=== PATIENT | female | born 1990 | race Caucasian/White ===

== ENCOUNTER 2018-11-27 17:53 | Emergency (ER) | payer OTHER, MEDICAID, SELFPAY ==
[2018-11-27 18:17] VITALS: BP 120/66; PULSE 106; RESP 16; TEMP 37.1; O2SAT 97; BMI 32.8
--- NOTE | 2018-11-27 19:25 | ED_ITS ---
HPI - URI/Sore Throat General Chief Complaint: Upper Respiratory Symptoms Stated Complaint: Throat swollen body aches Time Seen by Provider: 11/27/18 18:15 Source: patient Mode of arrival: ambulatory Limitations: no limitations History of Present Illness HPI Narrative: Patient presents to the emergency department, complaining of body aches, swollen neck glands, and headache. patient's significant other states that patient felt as though she had a fever last night, too. Patient denies sore throat today, though she had a sore throat 2 days ago when this started. Patient also denies cough or rhinorrhea. She denies abdominal pain, nausea, vomiting, or diarrhea. No back pain or dysuria. No chest pain. patient has not been short of breath. She states that she does not have any known sick contacts, though her friends kids are in school, and have been sick with other things. Patient states that she was seen at the emergency department at [facility] in [place] 2 days ago, and was prescribed Tamiflu and Augmentin. She states, however, that both her influenza and strep test were negative. Patient states she is otherwise healthy, and denies other complaints at this time. She states that she is here because in the past 2 days since her symptoms started, she has not noticed any improvement. Patient states that her myalgias are mainly in her legs, but also in her arms. Related Data Allergies Allergy/AdvReac Type Severity Reaction Status Date / Time No Known Drug Allergies Allergy Verified 11/27/18 20:33 Review of Systems Constitutional Denies chills, Denies fever(s), Denies lethargy and Denies weakness Eyes Denies change in vision, Denies eye discharge, Denies irritation and Denies loss of vision ENT Ears, Nose, Mouth, and Throat: Denies change in voice, Denies neck pain and Denies sore throat Cardiovascular Denies chest pain, Denies irregular heart rhythm, Denies lightheadedness, Denies palpitations, Denies dyspnea, Denies dyspnea on exertion and Denies orthopnea Respiratory Denies cough, Denies dyspnea, Denies dyspnea on exertion and Denies wheezing Gastrointestinal Gastrointestinal: Denies abdominal pain, Denies change in bowel habits, Denies diarrhea, Denies nausea and Denies vomiting Genitourinary Denies hematuria, Denies flank pain, Denies urinary incontinence and Denies urinary urgency Musculoskeletal Reports myalgias and Denies neck pain Comments: Cervical lymphadenopathy Integumentary/Breasts Denies pruritus, Denies erythema, Denies rash and Denies wounds Neurologic Denies confusion, Denies loss of vision and Denies weakness Psychiatric Denies anxiety, Denies confusion, Denies depression, Denies homicidal ideation and Denies suicidal ideation Endocrine Denies palpitations Hematologic/Lymphatic Denies easy bruising Allergic/Immunologic Denies wheezing [facility] Medical History Healthy adult (Acute) Surgical History No pertinent past surgical history (Acute) Social History Smoking Status: Never smoker Social History Smoking Status: Never smoker Exam Initial Vital Signs Initial Vital Signs: Vital Signs Temperature 98.8 F 11/27/18 18:17 Pulse Rate 106 H 11/27/18 18:17 Respiratory Rate 16 11/27/18 18:17 Blood Pressure 120/66 11/27/18 18:17 Pulse Oximetry 97 11/27/18 18:17 Const General: cooperative and well developed Nutritional Appearance: well nourished Orientation: alert, awake, oriented x3 and not confused HENKS Head: normocephalic and atraumatic Ears: external ears normal and TM's normal bilaterally Nose: external nose normal and No nasal discharge Face and sinus: sinuses nontender, face symmetric, no sinus tenderness and No dry mucous membranes Mouth: oral mucosae normal and moist mucous membranes Teeth and gingiva: dentition normal Throat: tonsils normal and uvula midline Eyes General: appearance normal, both eyes and all related structures Eyelids: eyelids normal Conjunctivae: conjunctivae normal Sclera: sclerae normal Pupils: PERRL EOM: EOM intact bilaterally Neck Neck: normal visual inspection, trachea midline, No lymphadenopathy, No midline deformity and No JVD Lymphatic: lymphadenopathy (Moderate, bilateral cervical) Chest Chest: normal inspection of the chest Resp Effort & Inspection: normal respiratory effort, able to speak in complete sentences, no respiratory distress and no use of accessory muscles Auscultation: clear to auscultation bilaterally, no rales, no rhonchi and no wheezes Cardio Rate: regular rate Rhythm: regular rhythm Heart Sounds: no click, no gallops, no murmurs and no rubs Pulses: normal peripheral pulses GI Inspection: non-distended Palpation: soft, no hepatosplenomegaly, No guarding, No pulsatile mass and No tender Auscultation: normal bowel sounds Back/Spine/Pelvis Back: No CVA tenderness Cervical Spine: cervical ROM normal and No pain with cervical ROM Thoracic/Lumbar Spine: thoracic and lumbar spine normal to inspection Skin General: no rashes or lesions noted, No jaundice and No petechiae Neuro General: alert, oriented x3, gait normal and no focal motor deficits Speech: speech normal Extrem General: full ROM, no clubbing, cyanosis or edema, no pedal edema and no calf t enderness Psych Appearance: well kempt Mental Status: mental status grossly normal Attitude: cooperative Thought Content: normal and suicidality Judgment: judgment good Course Course Narrative: Patient was treated symptomatically with Toradol and Tylenol 3. She was retested for influenza, and was also tested for mono, both of which were negative. I have advised the patient that I feel she likely has one of the flu-like viruses that are going around. We have discussed the timeline for the course of illness. We have discussed home management of symptoms, as well as the usual indications for return. Patient is already on Tamiflu and Augmentin, and at this point, I do not feel that any further specific treatment is indicated. Orders Ordered: ED Orders 11/27/18 19:25 Influenza A and B by PCR Rapid Stat 11/27/18 19:30 Monotest Stat Discontinued Medications Acetaminophen/Codeine Phosphate (Tylenol #3) 1 tab PO NOW ONE Stop: 11/27/18 19:16 Last Admin: 11/27/18 19:27 Dose: 1 tab Ketorolac Tromethamine (Toradol) 60 mg IM NOW ONE Stop: 11/27/18 19:16 Last Admin: 11/27/18 19:27 Dose: 60 mg Vital Signs - 8 hr 11/27/18 18:17 11/27/18 20:40 Temperature 98.8 F Pulse Rate 106 H 111 H Respiratory Rate 16 18 Blood Pressure 120/66 Blood Pressure [Left Arm] 105/52 L Pulse Oximetry 97 99 MDM - URI/Sore Throat Medical Records Attestation: I reviewed the patient's medical records. Lab Data Attestation: I reviewed the patient's lab results. Lab Results 11/27/18 11/27/18 Range/Units 19:25 19:30 Monoscreen Negative (Negative) Influenza A & B (PCR) Negative (Negative) Discharge Plan Departure Patient Disposition: Home Clinical Impression: Acute viral syndrome, Myalgia Discharge Date/Time: 11/27/18 21:05 Interventions: ED Discharge Assessment Last Done: 11/27/18 21:06 Activity Restrictions/Additional Instructions: Your influenza test and mono test were both negative. You most likely have one of the many flu like viruses that are going around. This does not test positive for influenza, but causes the same symptoms. Influenza and influenza like infections generally last 1-2 weeks. Please continue the medication as you are on, and be sure to drink plenty of fluids. He will most likely begin to feel a little better within the next few days. Referrals: [facility] [Provider Group]
[2018-11-27] MEDS: CODEINE/ACETAMINOPHEN 30/300 TABLET 1 TAB PO (19:27)
[2018-11-27] MEDS: KETOROLAC 60 MG/2 ML VIAL IM (19:27)
[2018-11-27 19:41] LABS: Monotest Negative (Negative)
[2018-11-27 19:53] LABS: Influenza A and B by PCR Rapid Negative (Negative)
[2018-11-27 20:40] VITALS: BP 105/52; PULSE 111; RESP 18; O2SAT 99
== END 2018-11-27 21:05 | disposition home or self-care (01) ==
PROVIDERS: Emergency Provider Emergency Medicine
DX: B34.9 Viral infection, unspecified (principal); M79.10 Myalgia, unspecified site
CPT/HCPCS: 36415; 86318; 87400; 96372; 99282; 99283; J1885

== ENCOUNTER → 2019-08-24 17:25 | Outpatient (CLI) | payer OTHER, MEDICAID, SELFPAY ==
[2019-08-24 18:10] LABS: Add Manual Diff / Slide Review NO; Basophils Absolute Auto 0 /uL (0-100); Basophils Percent Auto 0.2 % (0-2); Eosinophils Absolute Auto 100 /uL (0-450); Eosinophils Percent Auto 0.4 % (2-4); Hematocrit 37.3 % (36-46); Hemoglobin 12.5 g/dL (12.0-16.0); Lymphocytes Absolute Auto 2400 /uL (1100-4500); Lymphocytes Percent Auto 17.8 % (25-40); Mean Corpuscular HGB Conc 33.6 % (30-36); Mean Corpuscular Hemoglobin 28.8 PG (26-34); Mean Corpuscular Volume 85.9 fL (80-100); Monocytes Absolute Auto 1800 /uL (0-900); Monocytes Percent Auto 12.9 % (3-14); Neutrophils Absolute Auto 9400 /uL (1500-7000); Neutrophils Percent Auto 68.7 % (50-75); Platelet Count 428 X10^3/uL (150-400); Red Blood Cell Count 4.34 X10^6/uL (4.0-5.2); White Blood Cell Count 13.6 X10^3/uL (4.5-11.0)
[2019-08-24 18:16] LABS: Monotest Negative (Negative)
[2019-08-24 18:17] LABS: Influenza A - CEPHEID Flu A NEGATIVE (NEGATIVE); Influenza B - CEPHEID Flu B NEGATIVE (NEGATIVE)
[2019-08-24 18:36] LABS: Alanine Aminotransferase 65 IU/L (<35); Albumin 3.3 g/dL (3.5-5.0); Alkaline Phosphatase 176 U/L (38-126); Aspartate Aminotransferase 41 IU/L (14-36); BUN Creatinine Ratio 12.2 (6-22); Bilirubin Total 0.3 mg/dL (0.2-1.3); Blood Urea Nitrogen 11 mg/dL (7-17); Calcium 8.7 mg/dL (8.4-10.2); Carbon Dioxide 26 mmol/L (22-32); Chloride 98 mmol/L (98-107); Estimated Glomerular Filt Rate > 60.0 mL/min (>60); Globulin 3.2 g/dL (1.7-4.1); Glucose 108 mg/dL (70-100); HEMOLYSIS < 15 (0-50); Potassium 3.5 mmol/L (3.4-5.1); Sodium 135 mmol/L (137-145); Total Protein 6.5 g/dL (6.3-8.2)
[2019-08-24 19:05] LABS: TSH w/ Reflex to FT4 1.43 uIU/mL (0.47-4.68)
[2019-08-24 19:24] LABS: Hep C Virus Ab w/Reflex Quant NEGATIVE s/c (NEGATIVE)
[2019-08-24 20:00] LABS: Lipase 192 U/L (23-300)
[2019-08-24 20:33] LABS: Hepatitis B Surface Antigen NEGATIVE s/c (NEGATIVE)
== END ==
PROVIDERS: Visit Provider Nurse Practitioner
DX: R50.9 Fever, unspecified (principal); N30.01 Acute cystitis with hematuria; R53.83 Other fatigue
CPT/HCPCS: 36415; 80053; 83690; 84443; 85025; 86140; 86318; 86803; 87077; 87086; 87186; 87340; 87502